=== PATIENT | female | born 1985 | race Caucasian/White ===

== ENCOUNTER 2017-05-02 11:17 | Inpatient (IN) ==
--- NOTE | 2017-05-16 02:31 | OB/GYN History & Physical ---
Date of Encounter: 05/16/17 Time of Encounter: 02:27 Assessment and Plan (1) 37 weeks gestation of Current visit: Yes Status: Acute (2) Twin dichorionic diamniotic placenta Current visit: Yes Status: Acute US done by Dr. Moran, vertex/vertex baby B is known to be bigger than baby A, Dr. Moran discussed with patient the risks of vaginal delivery versus section and possible delivery of one twin vaginally followed by c- section, patient still desires to attempt vaginal delivery. (3) Spontaneous rupture of membranes Current visit: Yes Status: Acute Nitrazine confirmed SROM Admit to labor and delivery Nubain and epidural if desired Ultrasound for twin presentation done by Dr. Moran GBS negative Epidural to be placed due to anticipation of twin delivery Anticipate (4) Rh negative status during Current visit: Yes Status: Acute Qualifiers: Trimester: third trimester Qualified Code(s): O09.893 - Supervision of other high risk pregnancies, third trimester History of Present Illness Chief complaint: Onset of Labor HPI: , 37+1, with Di/Di twins, vertex/vertex in office on US in April, no prior c- sections. SROM at 0130. + Movement, +leakage of fluid, -Vaginal Bleed. Pt reports last duration of labor <3hrs. Pt desires vaginal delivery. Labs: GBS negative, HIV negative, all other serologies negative. VZV, Rubella immune. Blood type: B- Past Med Surg Social Fam HX - Past Medical History Medical history: no medical history - Social History Smoking Status: Never smoker Smokeless Tobacco Status: No Alcohol use: none Drug use: none - Family History Mother Living Status: Cause of : OVARIAN CANCER Obstetrical History - Pregnancies : 5 Para: 3 Term: 3 : 0 Ab's: 1 Livin Medications and Allergies Ferrous Sulfate 324 mg PO DAILY 05/16/17 [History] Folic Acid 1 tab PO DAILY 05/16/17 [History] Formula Tablet 1 tab PO DAILY 05/16/17 [History] Allergies No Known Allergies Allergy (Verified 01/05/17 14:27) Review of System OB - Constitutional Constitutional ROS IM: no fever(s), no weakness - Cardiovascular Cardiovascular: no chest pain - Respiratory Respiratory: no dyspnea - Gastrointestinal Gastrointestinal: no abdominal pain - Neurological Nerological: no syncope Exam - Constitutional Constitutional: well developed, well nourished, no acute distress - Neck Neck exam: full ROM - Lungs Respiratory exam: CTAB - Cardiovascular Cardiovascular exam: +S1, +S2 - Abdomen Abdomen: Present: gravid, non tender - Extremities Extremities exam: warm, radial pulses palpable and symmetrical - Cervix Dilation: 5 Effacement: 80 Results Result Diagrams: 05/16/17 02:31 All other labs normal.
[2017-05-16] MEDS ORDERED: Metoclopramide 10 MG/2 ML VIAL IVP PRN (02:36)
[2017-05-16] MEDS ORDERED: Famotidine 20 MG/2 ML VIAL IVP PRN (02:36)
[2017-05-16 02:39] LABS: Hematocrit 33.7 % (35.3-44.9); Hemoglobin 11.1 g/dL (11.5-15.4); Mean Corpuscular HGB Conc 32.9 g/dL (31.6-35.5); Mean Corpuscular Hemoglobin 27.1 pg (28.0-33.3); Mean Corpuscular Volume 82.2 fL (83.0-100.0); Mean Platelet Volume 10.1 fL (9.4-12.4); Platelet Count 241 K/mcL (140-400); Red Cell Distribution Width 15.4 % (11.5-14.5)
[2017-05-16] MEDS ORDERED: Ringers Solution, Lactated 1,000 ML IVC SCH (02:45)
[2017-05-16] MEDS ORDERED: Bupivacaine-MPF 0.25% 10 ML VIAL EP ONE (03:08)
[2017-05-16] MEDS ORDERED: *HR* FentaNYL (PF) 100 MCG/2 ML VIAL EP ONE (03:08)
--- NOTE | 2017-05-16 03:11 | Anesthesia Evaluation PreOp ---
Date of Encounter: 05/16/17 Time of Encounter: 02:40 - Past History Planned Operation: epidural for labor Cardiac History: Denies any Significant Hx Pulmonary History: Denies Any Significant HX BOX INSPECTOR History: Denies Any Significant HX Other Medical History: Denies Any Significant HX Anesthesia History: No Prior Anesthetic Complications (vag delivery x 3, d&c no anesthetic issues) : Yes Test: Positive Alcohol Use: none Drug use: none Medications and Allergies Ferrous Sulfate 324 mg PO DAILY 05/16/17 [History] Folic Acid 1 tab PO DAILY 05/16/17 [History] Formula Tablet 1 tab PO DAILY 05/16/17 [History] Allergies No Known Allergies Allergy (Verified 01/05/17 14:27) - Meds/Allergy Pre-op Review Medications Reviewed: Yes Allergies Reviewed: Yes Beta Blockers on Current Med List: No Anesthesia Results - Labs 05/16/17 02:31 Anesthesia Exam 3 Vital Signs Time 0240 BP 136/92 Pulse 110 Resp 18 O2 Sat Height: 67 inches Weight: 280 pounds NPO (# of Hours): 8 solids, clears Pain Scale: 5 Pain Scale Used: Numeric (1 - 10) - HEENT Pupil (Motor): Pupils equal Mallampati: II Teeth: Normal Oral Opening: Greater than 3 - BOX INSPECTOR LOC: Oriented BOX INSPECTOR Motor: Normal RUE, Normal LUE, Normal RLE, Normal LLE, Normal Face BOX INSPECTOR Sensory: Normal: RUE, LUE, RLE, LLE, Face - Cardiac Rhythm: Regular Murmur: None JVD: No Carotid Bruit: No - Pulmonary Breath Sounds: bilateral Clear Respiratory Effort: Symmetrical Anesthesia Assess/Plan ASA Score: 2 Modified [place] Scale for Level of Consciousness: Cooperative, oriented, and tranquil Anesthetic Plan: Regional Monitoring Plan: Standard Monitors Recovery Plan: Other
[2017-05-16] MEDS ORDERED: Epidural Premix (fent/bupiv) 110 ML EP SCH (03:15)
--- NOTE | 2017-05-16 04:22 | Anesthesia Procedures ---
Date of Encounter: 05/16/17 Time of Encounter: 03:30 Procedures: Anesthesia - Epidural/Spinal Patient ID/Chart reviewed: Yes Patient examined: Yes OB Eval: Gestational age: 37 OB Eval: : 5 OB Eval: Hx Para: 3 OB Eval: Dilated at (cm): 5 OB Eval: Contractions: Non-stressed pattern Consent Obtained: Yes Supplemental Oxygen: None/Room Air Site Prep: Aseptic Technique, Sterile prep and drape, Povidone-Iodine 1% Patient position: upright Local Anesthetic: Lidocaine 1% Amount of Local Anesthetic used: 3 Touhy Needle Gauge: 18 Touhy Needle Depth (cm): 7 Catheter Depth at Skin (cm): 14 Test Dose (1.5% Lido + Epi): Volume given (mls): 3 Test Dose Result: Negative Loading Dose: 0.25% Marcaine (mls): 6 Loading Dose: Fentanyl (mcg): 100 Loading Dose: Other: 4 ml saline Loading Dose Administered: Thru Catheter Infusion Med: 0.125% Bupivacaine w/ 2 mcg/ml Fentanyl Infusion Rate (mls/hr): [address]: Tegaderm, Tape Interspace Used: L3-L4 Loss of Resistance (PERLA): Yes (air) Blood: No CSF: No Paresthesia: No Procedure: 3 Vital Signs Time 0330 start 0348 test 0355 bolus 0404 infusion started BP 132/80 130/74 128/80 132/79 Pulse 92 109 92 92 Resp 16 16 16 16 O2 Sat 97 97 97 97 0404 pump started at 0404, pt tolerated well.
[2017-05-16] MEDS ORDERED: Ringers Solution, Lactated 2,000 ML ONE (07:48)
[2017-05-16] MEDS ORDERED: Oxytocin 20 units/ LR 1000 mL 20 UNIT/1,000 ML BAG IVC ONE ×3 (07:57→10:56)
--- NOTE | 2017-05-16 09:30 | OB/GYN Procedure Note ---
Delivery - Delivery Date: 05/16/17 Provider: Go Moran Intrapartum events: none Delivery induction: none Delivery augmentation: pitocin Delivery monitor: external FHT, external uterine, internal uterine Anesthesia: epidural Estimated Blood Loss: 200 - Infant (s) A Delivery Date: 05/16/17 Delivery Time: 07:24 Presentation: vertex Position: ROP Route of delivery: Gender: Female Viability: Viable Pounds: 5 Ounces: 4 Weight Gram: 2.37 kg at 1 minute: 8 at 5 mins: 9 Shoulder Dystocia: not encountered Specimens collected: cord blood Placenta: spontaneous Cord: 3 umbilical vessels Infant B Infant Delivery Date: 05/16/17 Delivery Time: 08:08 Presentation: vertex Position: CRISTIANO Route of delivery: Gender: Female Viability: Viable Pounds: 5 Ounces: 15 Weight Gram: 2.7 kg at 1 minute: 9 at 5 mins: 9 Shoulder Dystocia: not encountered Specimens collected: cord blood Placenta: spontaneous Cord: nuchal cord, 3 umbilical vessels, nuchal reduced - Repair Episiotomy: none Laceration Description: Perineal - 1st Degree - Complications Delivery complications: none Delivery comments: Patient is a 31-year-old 3 para 2 at 37-1/7 weeks gestation who presented to labor and delivery with complaint of spontaneous rupture membranes at approximately 1:30 this morning. Patient was noted to be grossly ruptured on admission and 5cm dilated. Bedside ultrasound performed and the patient did show that the babies were vertex vertex patient is already iron no augmentation was necessary. Patient progressed slowly did receive an epidural patient became complete and had the urge to push. Patient was taken to the operating room for double set up she was placed in the dorsal lithotomy position. Patient was prepped and draped patient was then allowed to push. Patient pushed 1 time delivering a viable female in left occiput posterior presentation at 0724. was bulb suctioned on the abdomen was constant and cut and was handed off to waiting pediatric team and cord blood was collected. The cord was then clamped with a single cord clamp and attention was then turned to twin B. Membranes were then ruptured and clear fluid was noted. Infant did start to drop but patient was having difficulty pushing the baby out because of the position. Contractions had spaced out and Pitocin was then started to help augment her labor. Patient appeared to still have cervix around the baby's head after approximately 30 minutes of pushing was decided we would let the patient labor down and was taken back to her room. In the process of putting a scalp lead on the baby so we could monitor better and infant's head was noted to be at a +2 station. We had the patient push again and this time she was able to bring the head down to a position. It required one more push before delivered in a left occiput anterior presentation at 0808. There was a nuchal cord 1 was loose and reduced the was then fully delivered and placed on the abdomen cord was clamped and cut and the was bulb suctioned on the abdomen. Apgars for twin A were 8 at 1 minute, 9 at 5 minutes, and for twin B were 9 at 1 minute, 9 at 5 minutes, infant weight for twin A was 5 lbs. 4 oz., and twin B was 5 lbs[address] Moran, anesthesia epidural, estimated blood loss 200 mL. Patient had a small first-degree perineal laceration repaired with 3-0 Vicryl in usual fashion. Cervix and vagina was visualized intact. Patient tolerated the delivery well she was taken back to her room and will be observed 2 hours before being taken floor. All needles and sponge counts were correct 2. - Disposition Mom disposition: stable in LDR disposition: stable in LDR
[2017-05-16] MEDS ORDERED: Folic Acid 1 MG TABLET PO SCH (11:35)
[2017-05-16] MEDS ORDERED: NON-FORMULARY MEDICATION 1 EACH EACH (Prenatal Formula Tablet 1 TAB) PO SCH (11:35)
[2017-05-16] MEDS ORDERED: Oxytocin 20 units/ LR 1000 mL 20 UNIT/1,000 ML BAG IVC SCH (11:35)
[2017-05-16] MEDS ORDERED: Measles/Mumps/Rubella Vacc 0.5 ML VIAL SQ PRN (11:35)
[2017-05-16] MEDS ORDERED: Prenatal Vit/FA 1 EACH TABLET PO SCH (11:35)
[2017-05-16] MEDS ORDERED: Rho Immune Globulin 1,500 UNIT SYRINGE IM PRN (11:35)
[2017-05-16] MEDS ORDERED: *HR* HYDROcodone/Acet 5/325 mg TABLET PO PRN (11:35)
[2017-05-16] MEDS ORDERED: Acetaminophen 325 MG TABLET PO PRN (11:35)
[2017-05-16] MEDS ORDERED: NON-FORMULARY MEDICATION 1 EACH EACH (Ferrous Sulfate 324 MG) PO SCH (11:35)
[2017-05-16] MEDS ORDERED: Ibuprofen 600 MG TABLET PO PRN (11:35)
[2017-05-17 07:47] VITALS: BP 122/83
[2017-05-17 08:41] LABS: Basophils % 0.3 %; Eosinophils # 0.3 K/mcL (0.0-0.6); Eosinophils % 2.3 %; Hematocrit 34.2 % (35.3-44.9); Hemoglobin 10.8 g/dL (11.5-15.4); Immature Granulocytes % 0.9 % (0-4); Lymphocytes # 2.6 K/mcL (0.6-4.6); Lymphocytes % 23.4 %; Mean Corpuscular HGB Conc 31.6 g/dL (31.6-35.5); Mean Corpuscular Hemoglobin 26.7 pg (28.0-33.3); Mean Corpuscular Volume 84.7 fL (83.0-100.0); Mean Platelet Volume 10.1 fL (9.4-12.4); Monocytes # 0.5 K/mcL (0.0-1.3); Monocytes % 4.8 %; Neutrophils # 7.5 K/mcL (1.6-8.9); Platelet Count 192 K/mcL (140-400); Red Blood Count 4.04 M/mcL (3.82-4.97); Red Cell Distribution Width 15.8 % (11.5-14.5); Segmented Neutrophils % 68.3 %
--- NOTE | 2017-05-17 09:14 | Discharge Summary ---
Date of Encounter: 05/17/17 Time of Encounter: 09:11 - Discharge Diagnosis (1) Status post vaginal delivery Priority: Primary Status: Acute (2) 37 weeks gestation of Priority: Secondary Status: Acute (3) Spontaneous rupture of membranes Priority: Secondary Status: Acute (4) Twin dichorionic diamniotic placenta Priority: Secondary Status: Acute (5) Rh negative status during Priority: Secondary Status: Acute Qualifiers: Trimester: third trimester Qualified Code(s): O09.893 - Supervision of other high risk pregnancies, third trimester - Discharge Medications Prescriptions: Ibuprofen [Motrin] 600 mg PO Q6HR PRN #15 tab PRN Reason: Cramping Home Medications: Ferrous Sulfate 324 mg PO DAILY 05/16/17 [History] Folic Acid 1 tab PO DAILY 05/16/17 [History] Formula Tablet 1 tab PO DAILY 05/16/17 [History] Ibuprofen [Motrin] 600 mg PO Q6HR PRN #15 tab 05/17/17 [Rx] Allergies/Adverse Reactions: Allergies No Known Allergies Allergy (Verified 01/05/17 14:27) Data Procedures and tests throughout hospitalization: Laboratory Tests 05/16/17 05/17/17 02:31 08:13 WBC 12.6 H 11.0 RBC 4.10 4.04 Hgb 11.1 L 10.8 L Hct 33.7 L 34.2 L MCV 82.2 L 84.7 MCH 27.1 L 26.7 L MCHC 32.9 31.6 RDW 15.4 H 15.8 H Plt Count 241 192 MPV 10.1 10.1 Immature Gran % 0.9 Seg Neutrophils % 68.3 Lymphocytes % 23.4 Monocytes % 4.8 Eosinophils % 2.3 Basophils % 0.3 Neutrophils # 7.5 Lymphocytes # 2.6 Monocytes # 0.5 Eosinophils # 0.3 Basophils # 0.0 Labs on day of discharge: Labs from last 24 hours 05/17/17 08:13 WBC 11.0 RBC 4.04 Hgb 10.8 L Hct 34.2 L MCV 84.7 MCH 26.7 L MCHC 31.6 RDW 15.8 H Plt Count 192 MPV 10.1 Immature Gran % 0.9 Seg Neutrophils % 68.3 Lymphocytes % 23.4 Monocytes % 4.8 Eosinophils % 2.3 Basophils % 0.3 Neutrophils # 7.5 Lymphocytes # 2.6 Monocytes # 0.5 Eosinophils # 0.3 Basophils # 0.0 Date of admission: 05/16/17 02:36 Consults: 05/16/17 11:35 Consult to Gas Plumbing Inspector [CONS] Routine Comment: Vaginal delivery, consult needed Discharging clinician: Doris Lora Anticipated date of discharge: 05/17/17 - Patient Status Disposition: Home, Self-Care Condition: Good Functional capacity at discharge: independent ambulation Overall status at discharge: patient is back to baseline - Discharge Instructions - Diet and Activity Diet: regular diet Hospital Course Reason for admission: rupture of membranes Delivery: Episiotomy: none Laceration: 1st degree (perineal) Other procedures: none complications: none Discharge diagnosis: IUP at term delivered (x2) baby: twins (female-female) Hospital course: - Delivery Date: 05/16/17 Provider: Go Moran Intrapartum events: none Delivery induction: none Delivery augmentation: pitocin Delivery monitor: external FHT, external uterine, internal uterine Anesthesia: epidural Estimated Blood Loss: 200 - (s) A Infant Delivery Date: 05/16/17 Infant Delivery Time: 07:24 Presentation: vertex Position: ROP Route of delivery: Gender: Female Viability: Viable Pounds: 5 Ounces: 4 Weight Gram: 2.37 kg at 1 minute: 8 at 5 mins: 9 Shoulder Dystocia: not encountered Specimens collected: cord blood Placenta: spontaneous Cord: 3 umbilical vessels Infant B Infant Delivery Date: 05/16/17 Delivery Time: 08:08 Presentation: vertex Position: CRISTIANO Route of delivery: Gender: Female Viability: Viable Pounds: 5 Ounces: 15 Weight Gram: 2.7 kg at 1 minute: 9 at 5 mins: 9 Shoulder Dystocia: not encountered Specimens collected: cord blood Placenta: spontaneous Cord: nuchal cord, 3 umbilical vessels, nuchal reduced - Repair Episiotomy: none Laceration Description: Perineal - 1st Degree - Complications Delivery complications: none Delivery comments: Patient is a 31-year-old 3 para 2 at 37-1/7 weeks gestation who presented to labor and delivery with complaint of spontaneous rupture membranes at approximately 1:30 this morning. Patient was noted to be grossly ruptured on admission and 5cm dilated. Bedside ultrasound performed and the patient did show that the babies were vertex vertex patient is already iron no augmentation was necessary. Patient progressed slowly did receive an epidural patient became complete and had the urge to push. Patient was taken to the operating room for double set up she was placed in the dorsal lithotomy position. Patient was prepped and draped patient was then allowed to push. Patient pushed 1 time delivering a viable female in left occiput posterior presentation at 0724. was bulb suctioned on the abdomen was constant and cut and was handed off to waiting pediatric team and cord blood was collected. The cord was then clamped with a single cord clamp and attention was then turned to twin B. Membranes were then ruptured and clear fluid was noted. did start to drop but patient was having difficulty pushing the baby out because of the position. Contractions had spaced out and Pitocin was then started to help augment her labor. Patient appeared to still have cervix around the baby's head after approximately 30 minutes of pushing was decided we would let the patient labor down and was taken back to her room. In the process of putting a scalp lead on the baby so we could monitor better and 's head was noted to be at a +2 station. We had the patient push again and this time she was able to bring the head down to a position. It required one more push before delivered in a left occiput anterior presentation at 0808. There was a nuchal cord 1 was loose and reduced the was then fully delivered and placed on the abdomen cord was clamped and cut and the was bulb suctioned on the abdomen. Apgars for twin A were 8 at 1 minute, 9 at 5 minutes, and for twin B were 9 at 1 minute, 9 at 5 minutes, infant weight for twin A was 5 lbs. 4 oz., and twin B was 5 lbs. [address] Moran, anesthesia epidural, estimated blood loss 200 mL. Patient had a small first-degree perineal laceration repaired with 3-0 Vicryl in usual fashion. Cervix and vagina was visualized intact. Patient tolerated the delivery well she was taken back to her room and will be observed 2 hours before being taken floor. All needles and sponge counts were correct 2. - Disposition Mom disposition: stable in LDR disposition: stable in LDR Time Attestation: Total time spent providing and/or coordinating discharge services: Exam - Constitutional Vitals: Temp Pulse Resp BP Pulse Ox 97.6 F 87 16 122/83 96 05/17/17 07:46 05/17/17 07:46 05/17/17 07:46 05/17/17 07:46 05/17/17 07:46 General appearance IM: A&O X 3, answers questions appropriately - Respiratory Respiratory exam: Present: CTAB - Cardiovascular Cardiovascular exam IM: Present: RRR, +S1, +S2 - GI/Abdominal GI/Abdominal exam IM: normal bowel sounds, soft - Uterus Position: 2 Fingers Below Umbilicus, Midline - Extremities Exam Extremities exam IM: Present: pedal edema (2+ to mdicalf, also edema of hands)
== END 2017-05-17 13:02 | disposition home or self-care (01) | DRG 775 ==
LOC: 1NENULAB 11:17 → LABOML 11:17 → 1NENUOBS 05-16 11:19
PROVIDERS: ADMIT Obstetrics & Gynecology; ATTEND Obstetrics & Gynecology